=== PATIENT | female | born 1985 | race Caucasian/White ===

== ENCOUNTER 2016-11-16 16:30 | Emergency (ER) | payer SELFPAY ==
[2016-11-16 17:42] VITALS: BP 173/96
[2016-11-16] MEDS ORDERED: Tetan/Diph/Pertus SYR(Tdap)* 0.5 ML SYR(BOOSTRIX) use SYR IM ONE (18:11)
--- NOTE | 2016-11-16 18:25 | UC ---
Skin Complaint HPI - HPI Summary HPI Summary: "Pt stepped on a screw in a pig pen about 3 hours ago. Pt is NOT utd on tetatnus ". right foot. Recent LMP and denies . She was wearing flip flops when this happend. no bleeding. no fevers, no chills , no d/c. - History of Current Complaint Chief Complaint: UCSkin Time Seen by Provider: 11/16/16 18:10 Stated Complaint: RIGHT FOOT INJURY,STEPPED ON NAIL Hx Last Menstrual Period: 2 wks ago - Allergy/Home Medications Allergies/Adverse Reactions: Allergies Allergy/AdvReac Type Severity Reaction Status Date / Time Erythromycin Allergy Rash blue Verified 11/16/16 17:28 and purple Review of Systems Constitutional: Negative Skin: Negative Eyes: Negative ENT: Negative Respiratory: Negative Cardiovascular: Negative Gastrointestinal: Negative Genitourinary: Negative Motor: Negative Neurovascular: Negative Musculoskeletal: Negative Neurological: Negative Psychological: Negative All Other Systems Reviewed And Are Negative: Yes PMH/Surg Hx/FS Hx/Imm Hx Previously Healthy: Yes - Surgical History Surgical History: Yes Surgery Procedure, Year, and Place: c section - Family History Known Family History: Positive: Hypertension, Diabetes - Social History Alcohol Use: None Substance Use Type: None Smoking Status (MU): Never Smoked Tobacco - Immunization History Most Recent Influenza Vaccination: no Most Recent Tetanus Shot: not UTD Physical Exam Triage Information Reviewed: Yes Appearance: Well-Appearing, No Pain Distress, Well-Nourished - very pleasant Vital Signs: Initial Vital Signs Temp 98.4 F 11/16/16 17:29 Pulse 91 11/16/16 17:29 Resp 16 11/16/16 17:29 BP 173/96 11/16/16 17:29 Pulse Ox 98 11/16/16 17:29 Eye Exam: Normal ENT Exam: Normal Dental Exam: Normal Neck exam: Normal Respiratory Exam: Normal Respiratory: Positive: Lungs clear, Normal breath sounds, No respiratory distress Cardiovascular Exam: Normal Cardiovascular: Positive: RRR, No Murmur, Pulses Normal Abdominal Exam: Normal Abdomen Description: Positive: Nontender, Soft Musculoskeletal Exam: Normal Neurological Exam: Normal Psychological Exam: Normal Skin: Positive: Other - Rt plantar foot with small puncture wound that has been irrigated. no bleeding, no discharge. mildly tender. wearing flip flops. Course/Dx - Course Course Of Treatment: Advised to keep foot covered and clean. Boostrix given today. Treat with doxy to cover microbes. She is very agreeable with this plan. 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 Make sure you take a probiotic daily while on the antibiotic. Make sure to avoid sun exposure as the antibiotic can make your skin burn easily. Tetanus and pertussis vaccine updated today.
== END 2016-11-16 18:45 | disposition home or self-care (01) ==
LOC: UCCORT 16:30
DX: S91.331A Puncture wound without foreign body, right foot, initial encounter (principal); W26.8XXA Contact with other sharp object(s), not elsewhere classified, initial encounter; Y93.9 Activity, unspecified; Y92.79 Other farm location as the place of occurrence of the external cause; Z23 Encounter for immunization; Z88.1 Allergy status to other antibiotic agents
CPT/HCPCS: 90471; 90715; 99212; G0463

== ENCOUNTER 2016-12-10 21:15 | Emergency (ER) | payer OTHER ==
[2016-12-10 21:32] VITALS: BP 143/78
[2016-12-10] MEDS ORDERED: predniSONE TAB* 20 MG PO ONE (22:01)
[2016-12-10] MEDS ORDERED: diPHENhydraMINE PO* 50 MG PO ONE ×2 (22:01→22:10)
[2016-12-10] MEDS ORDERED: diPHENhydraMINE PO* 50 MG PO PRN (22:01)
--- NOTE | 2016-12-10 22:09 | UC ---
Skin Complaint HPI - HPI Summary HPI Summary: Patient presents with bilateral leg and arm rash x 1 day which is pruritic. She denies detergent or soap changes. She was outside 2 days ago and was with her sister who has similar sxs but denies any insect bites or other contact areas or environmental contacts. Denies allergies other than abx. Denies BAIRD or other symptoms at this time. - History of Current Complaint Chief Complaint: UCGeneralIllness Time Seen by Provider: 12/10/16 21:34 Stated Complaint: SKIN COMPLAINT Hx Obtained From: Patient Hx Last Menstrual Period: 12/04/16 ?: No Onset/Duration: Sudden Onset Skin Exposure Onset/Duration: Minutes Ago, Days Ago Timing: Constant Onset Severity: Moderate Current Severity: Moderate Pain Intensity: 5 Pain Scale Used: 0-10 Numeric Location: Diffuse, Generalized, Hand (Right), Hand (Left), Foot (Right), Foot ( Left) Character: Hives, Redness Aggravating: Touch Alleviating: Antihistamines, Cold Compresses Associated Signs & Symptoms: Positive: Tenderness - Allergy/Home Medications Allergies/Adverse Reactions: Allergies Allergy/AdvReac Type Severity Reaction Status Date / Time Erythromycin Allergy Rash blue Verified 12/10/16 21:32 and purple Review of Systems Constitutional: Negative Skin: Rash Eyes: Negative Respiratory: Negative Cardiovascular: Negative Gastrointestinal: Negative Motor: Negative Neurovascular: Negative Musculoskeletal: Negative Neurological: Negative All Other Systems Reviewed And Are Negative: Yes PMH/Surg Hx/FS Hx/Imm Hx Previously Healthy: Yes - Surgical History Surgical History: Yes Surgery Procedure, Year, and Place: c section - Family History Known Family History: Positive: Hypertension, Diabetes - Social History Occupation: Employed Full-time Lives: With Family Alcohol Use: None Substance Use Type: None Smoking Status (MU): Never Smoked Tobacco - Immunization History Most Recent Influenza Vaccination: no Most Recent Tetanus Shot: not UTD Physical Exam Triage Information Reviewed: Yes Appearance: Well-Appearing, No Pain Distress, Well-Nourished Vital Signs: Initial Vital Signs Temp 98.9 F 12/10/16 21:27 Pulse 96 12/10/16 21:27 Resp 17 12/10/16 21:27 BP 143/78 12/10/16 21:27 Pulse Ox 98 12/10/16 21:27 Vital Signs Reviewed: Yes Eye Exam: Normal Eyes: Positive: Conjunctiva Clear Neck exam: Normal Neck: Positive: Supple, Nontender, No Lymphadenopathy, Tenderness @, Enlarged Nodes @ - posterior auricular node Respiratory Exam: Normal Respiratory: Positive: Chest non-tender Cardiovascular Exam: Normal Cardiovascular: Positive: RRR Musculoskeletal: Positive: Strength Intact, ROM Intact Neurological Exam: Normal Neurological: Positive: Alert Psychological: Positive: Normal Response To Family, Age Appropriate Behavior Skin: Positive: rashes - diffuse pruritic rash over bilateral legs and arms Course/Dx - Course Course Of Treatment: Bilateral rash over legs and arms of unknown cause. Denies known allergies or reactions. Triamcinalone 5% cream with benadryl. Prednisone given. - Differential Diagnoses - Skin Complaint Differential Diagnoses: Allergic Reaction, Drug Rash, Poison [place], Poison [place] - Diagnoses Provider Diagnoses: Allergic reaction Discharge - Discharge Plan Condition: Stable Disposition: HOME Prescriptions: Triamcinolone 0.5% CREAM(NF) [Triamcinolone 0.5% CREAM*] 1 applic TOPICAL QID # 1 tube predniSONE TAB* [Deltasone TAB*] 50 mg PO DAILY #4 tab Patient Education Materials: General Allergic Reaction (ED) Referrals: No Primary Care Phys,NOPCP [Primary Care Provider] - Additional Instructions: Follow up with PCP if symptoms persist Take benadryl at bedtime (50mg) until symptoms resolve Claritin daily in the AM Triamcinolone cream 5% apply to affected areas up to 4 times daily Prednisone once every morning for 4 days
== END 2016-12-10 22:22 | disposition home or self-care (01) ==
LOC: UCCORT 21:15
DX: T78.40XA Allergy, unspecified, initial encounter (principal); X58.XXXA Exposure to other specified factors, initial encounter; Y92.9 Unspecified place or not applicable
CPT/HCPCS: 99212; A9270-GY; G0463; J7512

== ENCOUNTER 2017-06-05 19:40 | Emergency (ER) | payer OTHER ==
--- NOTE | 2017-06-05 19:43 | UC ---
Upper Extremity HPI - History of Current Complaint Stated Complaint: LEFT HAND TINGLY Time Seen by Provider: 06/05/17 19:42 Hx Obtained From: Patient Hx Last Menstrual Period: 12/04/16 Onset/Duration: Sudden Onset Severity Initially: Moderate Severity Currently: Moderate Character: Sharp Aggravating Factor(s): Movement, Lifting, Flexion, Extension Alleviating Factor(s): Nothing Associated Signs And Symptoms: Positive: Negative - Allergies/Home Medications Allergies/Adverse Reactions: Allergies Allergy/AdvReac Type Severity Reaction Status Date / Time Erythromycin Allergy Rash blue Verified 06/05/17 19:56 and purple PMH/Surg Hx/FS Hx/Imm Hx Previously Healthy: Yes - Surgical History Surgical History: Yes Surgery Procedure, Year, and Place: c section - Family History Known Family History: Positive: Hypertension, Diabetes - Social History Alcohol Use: None Substance Use Type: None Smoking Status (MU): Never Smoked Tobacco - Immunization History Most Recent Influenza Vaccination: no Most Recent Tetanus Shot: not UTD Review of Systems Constitutional: Negative Skin: Negative Eyes: Negative ENT: Negative Respiratory: Negative Cardiovascular: Negative Gastrointestinal: Negative Genitourinary: Negative Motor: Negative Neurovascular: Negative Musculoskeletal: Negative Neurological: Weakness, Paresthesia, Numbness Psychological: Negative All Other Systems Reviewed And Are Negative: Yes Physical Exam Triage Information Reviewed: Yes Appearance: Well-Appearing Vital Signs Reviewed: Yes Eye Exam: Normal ENT Exam: Normal Dental Exam: Normal Neck exam: Normal Neck: Positive: 1 Respiratory Exam: Normal Cardiovascular Exam: Normal Abdominal Exam: Normal Musculoskeletal Exam: Normal Neurological Exam: Normal Psychological Exam: Normal Skin Exam: Normal Upper Extremity Course/Dx - Differential Dx/Diagnosis Provider Diagnoses: left carpal tunnel Discharge - Discharge Plan Condition: Stable Disposition: HOME Prescriptions: Methylprednisolone [Medrol Dosepak 4 MG*] 4 mg PO .SEE BONIFACIO INSTRUCTION #21 tab Patient Education Materials: Paresthesia (ED) Referrals: Ewa Almanza MD [Medical Doctor] - No Primary Care Phys,NOPCP [Primary Care Provider] - Additional Instructions: carpal tunnel
[2017-06-05 19:56] VITALS: BP 147/97
== END 2017-06-05 20:17 | disposition home or self-care (01) ==
LOC: UCCORT 19:40
DX: G56.02 Carpal tunnel syndrome, left upper limb (principal)
CPT/HCPCS: 99213; G0463

== ENCOUNTER 2021-08-21 05:42 | Inpatient (IN) ==
[2021-08-21] MEDS ORDERED: Buffered Lidocaine 1% SYRIN 1 ml INTRADERM ONE ×2 (06:00→07:29)
[2021-08-21] MEDS ORDERED: Sodium Citrate/Citric Acid LIQ 15 ML UDC PO ONE (06:00)
[2021-08-21] MEDS ORDERED: Lactated Ringers 1000 ml BAG 1,000 ML IV SCH ×3 (06:00→11:00)
[2021-08-21 06:46] LABS: Hematocrit 36 % (35-47); Hemoglobin 11.6 g/dL (12.0-16.0); Mean Corpuscular HGB Conc 33 g/dL (31-36); Mean Corpuscular Hemoglobin 24 pg (27-31); Mean Corpuscular Volume 74 fL (80-97); Mean Platelet Volume 9.2 fL (7.4-10.4); Platelet Count 339 10^3/uL (150-450); Red Blood Count 4.82 10^6 /uL (3.70-4.87); Red Cell Distribution Width 17 % (10-15); White Blood Count 11.8 10^3/uL (3.5-10.8)
[2021-08-21] MEDS ORDERED: Sodium Citrate/Citric Acid LIQ 15 ML UDC ONE (06:55)
[2021-08-21] MEDS ORDERED: ceFOXitin 2 GM IVPREMIX 2 GM/50 ML BAG ONE (06:55)
[2021-08-21] MEDS ORDERED: Morphine PF AMP (0.5MG/ML) 5 MG/10 ML AMP ONE ×2 (07:08→08:07)
[2021-08-21] MEDS ORDERED: ceFOXitin 2 GM IVPREMIX 2 GM/50 ML BAG IVPB ONE (07:29)
[2021-08-21] MEDS ORDERED: Lactated Ringers 1000 ml BAG 1,000 ML IV ONE (07:29)
[2021-08-21 07:40] LABS: ABS Eosinophils 0.2 10^3/ul (0-0.6); ABS Lymphocytes 2.5 10^3/ul (1.0-4.8); ABS Monocytes 0.9 10^3/ul (0-0.8); ABS Neutrophils 8.2 10^3/ul (1.5-7.7); Anisocytosis 1+; Lymphocyte % 21.1 %; Microcytosis 2+
[2021-08-21 07:41] LABS: Polychromasia 1+
[2021-08-21] MEDS ORDERED: fentaNYL 100 mcg/2 ml 50 MCG/ML VIAL ONE ×2 (08:43→08:46)
[2021-08-21] MEDS ORDERED: Metoclopramide 5 MG/ML VIAL (10 mg) IV PRN (08:50)
[2021-08-21] MEDS ORDERED: Naloxone 0.4 mg VIAL 0.4 mg/ml 1 ml VIAL IV PRN (08:50)
[2021-08-21] MEDS ORDERED: Ondansetron 4 mg VIAL 2 MG/ML 2 ml VIAL IV PRN (08:50)
[2021-08-21] MEDS ORDERED: DiMENhydriNATE IV 50 mg/ml 1 ml VIAL IV PUSH PRN (08:50)
[2021-08-21] MEDS ORDERED: Naloxone 4 mg VIAL (10 ml) 2 MG in NS 0.9% 250 ml 250 ML IV PRN (08:50)
[2021-08-21] MEDS ORDERED: Acetaminophen IV 1 GM/100ML 100 ML IV ONE (09:09)
[2021-08-21] MEDS ORDERED: Oxytocin 10 UNITS/ML 1 ML VIAL ONE (09:31)
[2021-08-21] MEDS ORDERED: Oxytocin in LR 0 UNITS/0 ML BAG IVPB ONE (10:01)
[2021-08-21 10:18] LABS: Urine Appearance Clear; Urine Bilirubin Negative (Negative); Urine Blood Negative (Negative); Urine Color Yellow; Urine Glucose Negative (Negative); Urine Ketones Negative (Negative); Urine Nitrite Negative (Negative); Urine Protein Negative (Negative); Urine Specific Gravity 1.014 (1.002-1.030); Urine Urobilinogen Negative (Negative)
[2021-08-21] MEDS ORDERED: Witch Hazel PAD JAR TOPICAL PRN (10:37)
[2021-08-21] MEDS ORDERED: Glycerin ADULT 2.4 gm SUPP PR PRN (10:37)
[2021-08-21 13:22] LABS: Urine Benzodiazepine Screen None Detected (None Detect); Urine Cannabinoids Screen None Detected (None Detect); Urine Opiates Screen None Detected (None Detect)
[2021-08-21 14:03] LABS: Albumin 3.2 g/dL (3.2-5.2); Albumin/Globulin Ratio 1.2 (1-3); Calcium 9.1 mg/dL (8.6-10.3); Globulin 2.6 g/dL (2-4); Total Bilirubin 0.4 mg/dL (0.2-1.0); Total Protein 5.8 g/dL (6.4-8.9); Uric Acid 4.2 mg/dL (2.3-6.6); eGFR CKD-EPI 123.8 (>60)
[2021-08-22 06:02] LABS: ABS Eosinophils 0.3 10^3/ul (0-0.6); ABS Lymphocytes 1.9 10^3/ul (1.0-4.8); ABS Monocytes 0.9 10^3/ul (0-0.8); Eosinophil % 2.3 %; Hematocrit 29 % (35-47); Hemoglobin 9.4 g/dL (12.0-16.0); Lymphocyte % 17.5 %; Mean Corpuscular HGB Conc 32 g/dL (31-36); Mean Corpuscular Hemoglobin 24 pg (27-31); Mean Corpuscular Volume 74 fL (80-97); Mean Platelet Volume 9.1 fL (7.4-10.4); Nucleated Red Blood Cells % 0.1; Platelet Count 262 10^3/uL (150-450); Red Blood Count 3.92 10^6 /uL (3.70-4.87); Red Cell Distribution Width 17 % (10-15); White Blood Count 11.1 10^3/uL (3.5-10.8)
[2021-08-23 08:53] VITALS: BP 142/72
== END 2021-08-23 12:45 | disposition home or self-care (01) | DRG 788 ==
LOC: MCHOB 05:42
PROVIDERS: ADMIT Obstetrics & Gynecology; ATTEND Obstetrics & Gynecology